=== PATIENT | female | born 1975 | race Caucasian/White ===

== ENCOUNTER 2019-07-07 14:44 | Emergency (ER) | payer BC ==
[2019-07-07] MEDS ORDERED: Lactated Ringers 1,000 ML IV ONE ×2 (15:17→15:20)
--- NOTE | 2019-07-07 15:17 | EDM.PDOC ---
ED HPI GENERAL MEDICAL PROBLEM - General Chief Complaint: Drug or Alcohol Abuse Stated Complaint: DETOX Time Seen by Provider: 07/07/19 15:10 - History of Present Illness INITIAL COMMENTS - FREE TEXT/NARRATIVE: 44-year-old female presents to the emergency room for alcohol detox and possible placement into the [facility] Patient has a long history of alcoholism. She has tried to stop multiple times. The patient was found to be acting intoxicated at her place of employment and was confronted with this today. She is had issues with this in the past but the patient did not seek help. Today they did contact [facility] who referred her here for detox and/or medical clearance. Past medical history significant for heavy alcohol use. She has no chronic medical problems denies being . She has had a exploratory laparotomy with resultant oophorectomy because of pain. Patient cannot provide any other information in this. She is a 3 para 3 Generalized Pain Score (Numeric/FACES): 6 - Related Data Allergies Allergy/AdvReac Type Severity Reaction Status Date / Time No Known Allergies Allergy Verified 07/07/19 15:16 Home Meds: Home Meds LORazepam [Lorazepam] 1 mg PO Q6H #20 tablet 07/07/19 [Rx] Ondansetron [Zofran ODT] 4 mg PO Q6H #12 tab.dis 07/07/19 [Rx] ED ROS GENERAL - Review of Systems Review Of Systems: See Below Constitutional: Reports: No Symptoms, Weight Gain Respiratory: Reports: No Symptoms Cardiovascular: Reports: No Symptoms Endocrine: Reports: No Symptoms GI/Abdominal: Reports: Abdominal Pain (Upper abdominal discomfort), Nausea Musculoskeletal: Reports: No Symptoms Skin: Reports: No Symptoms Neurological: Reports: Other Psychiatric: Reports: No Symptoms Hematologic/Lymphatic: Reports: Other Immunologic: Reports: Other ED EXAM, GENERAL - Physical Exam Exam: See Below Exam Limited By: Intoxication (She is intoxicated but trying to be cooperative.) General Appearance: Alert, No Apparent Distress Ears: Normal External Exam, Normal Canal, Hearing Grossly Normal, Other (He has some scarring of both tympanic membranes apparently she had ear tubes as a child ) Nose: Normal Inspection, Normal Mucosa, No Blood Throat/Mouth: Normal Inspection, Normal Lips, Other (Mild evidence of dental decay) Head: Atraumatic, Normocephalic Neck: Normal Inspection, Supple, Non-Tender, Full Range of Motion. No: Lymphadenopathy (L), Lymphadenopathy (R) Respiratory/Chest: No Respiratory Distress, Lungs Clear, Normal Breath Sounds Cardiovascular: Regular Rate, Rhythm, No Edema, No Murmur GI/Abdominal: Normal Bowel Sounds, Soft, Non-Tender Back Exam: Normal Inspection. No: CVA Tenderness (L), CVA Tenderness (R) Extremities: Normal Inspection, No Pedal Edema Neurological: Other (Is intoxicated but cooperative) Course - Vital Signs Last Recorded V/S: Last Vital Signs Temp 36.8 C 07/07/19 15:08 Pulse 80 07/07/19 18:30 Resp 20 07/07/19 15:08 BP 117/83 07/07/19 16:31 Pulse Ox 100 07/07/19 18:30 - Orders/Labs/Meds Orders: Active Orders 24 hr Category Date Time Status Bedrest Bathroom Privileges [RC] ASDIRECTED Care 07/07/19 19:05 Inactive CIWAA Assessment [RC] Q15M Care 07/07/19 19:05 Inactive CIWAA Assessment [RC] Q1H Care 07/07/19 19:05 Inactive CIWAA Assessment [RC] Q30M Care 07/07/19 19:05 Inactive CIWAA Assessment [RC] Q4H Care 07/07/19 19:05 Inactive CIWAA Assessment [RC] Q4H Care 07/07/19 19:49 Ordered Cardiac Monitoring [RC] CONTINUOUS Care 07/07/19 19:07 Inactive Intake and Output [RC] QSHIFT Care 07/07/19 19:07 Inactive Notify Provider Consults [RC] ASDIRECTED Care 07/07/19 19:08 Active Notify Provider [RC] PRN Care 07/07/19 19:05 Inactive Oxygen Therapy [RC] PRN Care 07/07/19 19:05 Inactive Pulse Oximetry [RC] CONTINUOUS Care 07/07/19 19:07 Inactive VTE/DVT Education [RC] PER UNIT ROUTINE Care 07/07/19 19:05 Inactive Vital Signs [RC] Q4H Care 07/07/19 19:05 Inactive Consult to Physician [CONS] Routine Cons 07/07/19 19:05 Active Potassium Chloride [KCl 10 MEQ in Water 100 ML] 10 meq Med 07/07/19 17:00 Active Premix Bag 1 bag IV ASDIRECTED Potassium Chloride [KCl 10 MEQ in Water 100 ML] 10 meq Med 07/07/19 19:30 Active Premix Bag 1 bag IV Q1H Medication Orders Potassium Chloride 10 meq/ (Premix) 100 mls @ 100 mls/hr IV ASDIRECTED JERI Last Admin: 07/07/19 17:13 Dose: 100 mls/hr Potassium Chloride 10 meq/ (Premix) 100 mls @ 100 mls/hr IV Q1H JERI Stop: 07/07/19 23:29 Labs: Laboratory Tests 07/07/19 07/07/19 07/07/19 Range/Units 15:45 15:45 17:07 WBC 6.99 (3.98-10.04) K/mm3 RBC 4.79 (3.98-5.22) M/mm3 Hgb 13.5 (11.2-15.7) gm/dl Hct 40.9 (34.1-44.9) % MCV 85.4 (79.4-94.8) fl MCH 28.2 (25.6-32.2) pg MCHC 33.0 (32.2-35.5) g/dl RDW Std Deviation 42.5 (36.4-46.3) fL Plt Count 183 (182-369) K/mm3 MPV 10.5 (9.4-12.3) fl Neut % (Auto) 59.1 (34.0-71.1) % Lymph % (Auto) 35.1 (19.3-51.7) % [place] % (Auto) 4.0 L (4.7-12.5) % Eos % (Auto) 1.1 (0.7-5.8) Baso % (Auto) 0.6 (0.1-1.2) % Neut # (Auto) 4.13 (1.56-6.13) K/mm3 Lymph # (Auto) 2.45 (1.18-3.74) K/mm3 [place] # (Auto) 0.28 (0.24-0.36) K/mm3 Eos # (Auto) 0.08 (0.04-0.36) K/mm3 Baso # (Auto) 0.04 (0.01-0.08) K/mm3 Sodium 144 (136-145) mEq/L Potassium 3.4 L (3.5-5.1) mEq/L Chloride 105 (98-107) mEq/L Carbon Dioxide 22 (21-32) mEq/L Anion Gap 20.4 H (5-15) BUN 10 (7-18) mg/dL Creatinine 0.8 (0.55-1.02) mg/dL Est Cr Clr Drug Dosing 85.76 mL/min Estimated GFR (MDRD) > 60 (>60) mL/min BUN/Creatinine Ratio 12.5 L (14-18) Glucose 113 H (74-106) mg/dL Calcium 8.9 (8.5-10.1) mg/dL Magnesium 2.1 (1.8-2.4) mg/dl Total Bilirubin 0.6 (0.2-1.0) mg/dL AST 30 (15-37) U/L ALT 38 (14-59) U/L Alkaline Phosphatase 72 (46-116) U/L Total Protein 8.1 (6.4-8.2) g/dl Albumin 4.5 (3.4-5.0) g/dl Globulin 3.6 gm/dL Albumin/Globulin Ratio 1.3 (1-2) Urine Color (Yellow) Urine Appearance (Clear) Urine pH (5.0-8.0) Ur Specific [place] (1.005-1.030) Urine Protein (Negative) Urine Glucose (UA) (Negative) Urine Ketones (Negative) Urine Occult Blood (Negative) Urine Nitrite (Negative) Urine Bilirubin (Negative) Urine Urobilinogen (0.2-1.0) Ur Leukocyte Esterase (Negative) Urine HCG, Qual Negative (NEGATIVE) Urine Opiates Screen (VHVMRY=884) Ur Buprenorphine Scrn (CUTOFF=10) Ur Oxycodone Screen (YDE7WJ=751) Urine Methadone Screen (SQXILM=958) Ur Propoxyphene Screen (SGPBWI=355) Ur Barbiturates Screen (LYKUMN=278) Ur Tricyclics Screen (YDFJUX=956) Ur Phencyclidine Scrn (CUTOFF=25) Ur Amphetamine Screen (TLNEIV=301) U Methamphetamines Scrn (PHBJVP=932) U Benzodiazepines Scrn (WXWAUQ=170) U Cocaine Metab Screen (RKOOYK=834) U Marijuana (THC) Screen (CUTOFF=50) Ethyl Alcohol 0.28 (0.00) gm% 02/21/20 02/21/20 02/21/20 Range/Units 17:07 17:07 18:39 WBC (3.98-10.04) K/mm3 RBC (3.98-5.22) M/mm3 Hgb (11.2-15.7) gm/dl Hct (34.1-44.9) % MCV (79.4-94.8) fl MCH (25.6-32.2) pg MCHC (32.2-35.5) g/dl RDW Std Deviation (36.4-46.3) fL Plt Count (182-369) K/mm3 MPV (9.4-12.3) fl Neut % (Auto) (34.0-71.1) % Lymph % (Auto) (19.3-51.7) % [place] % (Auto) (4.7-12.5) % Eos % (Auto) (0.7-5.8) Baso % (Auto) (0.1-1.2) % Neut # (Auto) (1.56-6.13) K/mm3 Lymph # (Auto) (1.18-3.74) K/mm3 [place] # (Auto) (0.24-0.36) K/mm3 Eos # (Auto) (0.04-0.36) K/mm3 Baso # (Auto) (0.01-0.08) K/mm3 Sodium (136-145) mEq/L Potassium (3.5-5.1) mEq/L Chloride (98-107) mEq/L Carbon Dioxide (21-32) mEq/L Anion Gap (5-15) BUN (7-18) mg/dL Creatinine (0.55-1.02) mg/dL Est Cr Clr Drug Dosing mL/min Estimated GFR (MDRD) (>60) mL/min BUN/Creatinine Ratio (14-18) Glucose (74-106) mg/dL Calcium (8.5-10.1) mg/dL Magnesium (1.8-2.4) mg/dl Total Bilirubin (0.2-1.0) mg/dL AST (15-37) U/L ALT (14-59) U/L Alkaline Phosphatase (46-116) U/L Total Protein (6.4-8.2) g/dl Albumin (3.4-5.0) g/dl Globulin gm/dL Albumin/Globulin Ratio (1-2) Urine Color Yellow (Yellow) Urine Appearance Clear (Clear) Urine pH 6.5 (5.0-8.0) Ur Specific [place] 1.020 (1.005-1.030) Urine Protein Negative (Negative) Urine Glucose (UA) Negative (Negative) Urine Ketones Negative (Negative) Urine Occult Blood Negative (Negative) Urine Nitrite Negative (Negative) Urine Bilirubin Negative (Negative) Urine Urobilinogen 0.2 (0.2-1.0) Ur Leukocyte Esterase Negative (Negative) Urine HCG, Qual (NEGATIVE) Urine Opiates Screen Negative (TPULPO=315) Ur Buprenorphine Scrn Negative (CUTOFF=10) Ur Oxycodone Screen Negative (WOS8JS=846) Urine Methadone Screen Negative (CADYVO=403) Ur Propoxyphene Screen Negative (IQTDCF=883) Ur Barbiturates Screen Negative (RBXFGG=155) Ur Tricyclics Screen Negative (SMAIXY=251) Ur Phencyclidine Scrn Negative (CUTOFF=25) Ur Amphetamine Screen Negative (HSNKVE=766) U Methamphetamines Scrn Negative (LALSOM=633) U Benzodiazepines Scrn Negative (DZEDHA=700) U Cocaine Metab Screen Negative (QBLSBV=298) U Marijuana (THC) Screen Negative (CUTOFF=50) Ethyl Alcohol 0.21 (0.00) gm% Meds: Medications Generic Name Dose Route Start Last Admin Trade Name Freq PRN Reason Stop Dose Admin Potassium Chloride 10 meq/ 100 mls @ 100 mls/hr 07/07/19 17:00 07/07/19 17:13 Premix IV 100 mls/hr ASDIRECTED JERI Administration Potassium Chloride 10 meq/ 100 mls @ 100 mls/hr 07/07/19 19:30 Premix IV 07/07/19 23:29 Q1H JERI Discontinued Medications Generic Name Dose Route Start Last Admin Trade Name Freq PRN Reason Stop Dose Admin Acetaminophen 650 mg 07/07/19 19:23 07/07/19 19:32 Tylenol PO 07/07/19 19:24 650 mg NOW ONE Administration Lactated Ringer's 1,000 mls @ 999 mls/hr 07/07/19 15:17 07/07/19 15:51 Ringers, Lactated IV 07/07/19 16:17 999 mls/hr .BOLUS ONE Administration Lactated Ringer's 1,000 mls @ 999 mls/hr 07/07/19 15:20 07/07/19 17:00 Ringers, Lactated IV 07/07/19 16:20 999 mls/hr .BOLUS ONE Administration Lactated Ringer's 1,000 mls @ 125 mls/hr 07/07/19 19:15 Ringers, Lactated IV ASDIRECTED JERI Lorazepam 0 mg 07/07/19 19:15 Ativan IV ASDIRECTED JERI Protocol Lorazepam 0 mg 07/07/19 19:15 Ativan PO ASDIRECTED JERI Protocol Lorazepam 1 mg 07/07/19 19:27 07/07/19 19:32 Ativan PO 07/07/19 19:28 1 mg ONETIME ONE Administration Ondansetron HCl 4 mg 07/07/19 15:31 07/07/19 15:54 Zofran IVPUSH 07/07/19 15:32 Not Given ONETIME ONE Ondansetron HCl Confirm 07/07/19 15:35 07/07/19 15:55 Zofran Administered 07/07/19 15:36 Not Given Dose 4 mg .ROUTE .STK-MED ONE Ondansetron HCl Confirm 07/07/19 15:36 07/07/19 15:55 Zofran Administered 07/07/19 15:37 Not Given Dose 4 mg .ROUTE .STK-MED ONE Ondansetron HCl 4 mg 07/07/19 19:05 07/07/19 19:21 Zofran IVPUSH 4 mg Q4H PRN Administration Nausea Ondansetron HCl Confirm 07/07/19 19:20 07/07/19 19:24 Zofran Administered 07/07/19 19:21 Not Given Dose 4 mg .ROUTE .STK-MED ONE Potassium Chloride 20 meq 07/07/19 16:45 07/07/19 19:23 Klor-Con M20 PO 07/07/19 16:46 Not Given ONETIME ONE - Re-Assessments/Exams Free Text/Narrative Re-Assessment/Exam: 07/07/19 19:05 Initial blood alcohol 0.28. She received 2 L of fluid at this point her blood alcohol is too high to go to the [facility] we will keep her here until her blood alcohol is less then 0.20 before sending to the [facility] 07/07/19 19:56 Second blood alcohol is 0.21 and another hour she will be under 0.20. She will receive another 10 mEq potassium and then be discharged to the [facility]. Departure - Departure Time of Disposition: 19:30 Disposition: Home, Self-Care 01 Clinical Impression: Alcohol abuse - Discharge Information Prescriptions: LORazepam [Lorazepam] 1 mg PO Q6H #20 tablet Ondansetron [Zofran ODT] 4 mg PO Q6H #12 tab.dis Referrals: PCP,None [Primary Care Provider] - Sepsis Event Note - Evaluation Sepsis Screening Result: No Definite Risk - Focused Exam Vital Signs: Vital Signs Temp Pulse Pulse Resp BP BP Pulse Ox 07/07/19 18:30 80 100 07/07/19 18:15 78 99 07/07/19 18:00 81 99 07/07/19 17:45 71 100 07/07/19 17:30 74 99 07/07/19 17:15 86 100 07/07/19 17:03 74 100 07/07/19 16:45 79 98 07/07/19 16:31 77 117/83 96 07/07/19 16:30 75 96 07/07/19 16:24 76 118/82 98 07/07/19 16:23 82 99 07/07/19 15:08 36.8 C 103 H 20 143/95 H 99 Date Exam was Performed: 07/07/19 Time Exam was Performed: 19:56 - My Orders Last 24 Hours: My Active Orders 07/07/19 17:00 Potassium Chloride [KCl 10 MEQ in Water 100 ML] 10 meq Premix Bag 1 bag IV ASDIRECTED 07/07/19 19:30 Potassium Chloride [KCl 10 MEQ in Water 100 ML] 10 meq Premix Bag 1 bag IV Q1H 07/07/19 19:49 CIWAA Assessment [RC] Q4H - Assessment/Plan Last 24 Hours: My Active Orders 07/07/19 17:00 Potassium Chloride [KCl 10 MEQ in Water 100 ML] 10 meq Premix Bag 1 bag IV ASDIRECTED 07/07/19 19:30 Potassium Chloride [KCl 10 MEQ in Water 100 ML] 10 meq Premix Bag 1 bag IV Q1H 07/07/19 19:49 CIWAA Assessment [RC] Q4H
[2019-07-07] MEDS ORDERED: Ondansetron 4 MG/2 ML SDV ONE ×3 (15:35→19:20)
[2019-07-07] MEDS: Ondansetron 4 MG/2 ML SDV IVPUSH ONE ×2 (15:52→15:54)
[2019-07-07] MEDS ORDERED: Potassium Chloride 20 MEQ Tab.ER PO ONE (16:45)
[2019-07-07] MEDS ORDERED: Potassium Chloride 10 MEQ in Premix Bag 1 BAG IV SCH ×2 (17:00→19:30)
[2019-07-07] MEDS ORDERED: Ondansetron 4 MG/2 ML SDV IVPUSH PRN (19:05)
[2019-07-07] MEDS ORDERED: LORazepam 1 MG Tab PO SCH (19:15)
[2019-07-07] MEDS ORDERED: LORazepam 2 MG/ML SDV IV SCH (19:15)
[2019-07-07] MEDS ORDERED: Lactated Ringers 1,000 ML IV SCH (19:15)
[2019-07-07] MEDS ORDERED: Acetaminophen 325 MG Tab PO ONE (19:23)
[2019-07-07] MEDS ORDERED: LORazepam 1 MG Tab PO ONE (19:27)
== END 2019-07-07 21:15 | disposition home or self-care (01) ==
LOC: JD.ED 14:44
DX: F10.10 Alcohol abuse, uncomplicated (principal); Y90.1 Blood alcohol level of 20-39 mg/100 ml
CPT/HCPCS: 36415; 80053; 80306; 80307; 81003; 81025; 83735; 85025; 96361; 96365; 96366; 96375; 96376; 99284; A9270; J2405; J3480; J7120